=== PATIENT | female | born 1970 | race Caucasian/White ===

== ENCOUNTER 2022-03-31 18:41 | Emergency (ER) | payer OTHER ==
[2022-03-31 19:09] VITALS: BP 99/71; PULSE 82; RESP 20; TEMP 99.3; BMI 27.4
[2022-03-31] MEDS ORDERED: IBUPROFEN 600 MG TABLET (FP) PO ONE ×2 (20:45→20:49)
[2022-03-31] MEDS ORDERED: METHOCARBAMOL 500 MG TABLET PO ONE (20:56)
[2022-03-31] MEDS ORDERED: LIDOCAINE 5% TOPICAL PATCH TP ONE (20:56)
[2022-03-31] MEDS ORDERED: METHOCARBAMOL 500 MG TABLET ONE (21:06)
[2022-03-31] MEDS ORDERED: LIDOCAINE 5% TOPICAL PATCH ONE (21:07)
[2022-03-31] MEDS ORDERED: LIDOCAINE PATCH REMOVAL MC SCH (22:00)
== END 2022-03-31 21:17 | disposition home or self-care (01) ==
LOC: FER 18:41
DX: R07.89 Other chest pain (principal)
CPT/HCPCS: 71045-TC-FY; 93005; 99284-25

== ENCOUNTER 2022-05-03 10:15 | Day surgery (SDC) | payer OTHER ==
[2022-04-28 13:53] VITALS: BMI 26.5
[2022-05-03 11:45] VITALS: RESP 18; TEMP 97.7
[2022-05-03 12:05] VITALS: BP 112/70; PULSE 72
== END 2022-05-03 12:20 | disposition home or self-care (01) ==
LOC: FASU-ENDO 10:15
PROVIDERS: ATTEND Internal Medicine Gastroenterology
PROC: 0DJD8ZZ Inspection of Lower Intestinal Tract, Via Natural or Artificial Opening Endoscopic (ICD-10-PCS; principal; 2022-05-03 11:18)
DX: Z12.11 Encounter for screening for malignant neoplasm of colon (principal); K57.30 Diverticulosis of large intestine without perforation or abscess without bleeding

== ENCOUNTER 2023-06-08 09:50 | Day surgery (SDC) | payer BC ==
[2023-06-08 10:47] VITALS: BMI 29.9
[2023-06-08 10:51] LABS: BASO % 0.3 % (0-2.0); EOS % 2.2 % (0-4.5); HEMATOCRIT 39.3 % (32.4-45.2); HEMOGLOBIN 13.6 GM/dL (10.7-15.3); LYMPH % 27.5 % (8-40); MCH 28.9 pg (25.7-33.7); MCHC 34.6 g/dl (32.0-36.0); MEAN CELL VOLUME 83.5 fl (80-96); MEAN PLT VOLUME 6.9 fl (7.5-11.1); MONO % 6.9 % (3.8-10.2); NEUT % 63.1 % (42.8-82.8); PLATELET COUNT 270 10^3/uL (134-434); RBC 4.71 M/mm3 (3.60-5.2); RDW 13.3 % (11.6-15.6); WHITE BLOOD COUNT 7.3 K/mm3 (4.0-10.0)
[2023-06-08 11:00] LABS: INR 1.03 (0.83-1.09)
[2023-06-08 11:01] LABS: POTASSIUM 4.2 mmol/L (3.5-5.1)
[2023-06-08 11:02] LABS: ACTIVATED PTT 29.7 SECONDS (25.2-36.5)
[2023-06-08 11:04] LABS: BLOOD UREA NITROGEN 18.3 mg/dL (7-18)
[2023-06-08 11:05] LABS: ALBUMIN 3.8 g/dl (3.4-5.0)
[2023-06-08 11:06] LABS: CREATININE 0.8 mg/dL (0.55-1.3)
[2023-06-08 11:09] LABS: BILIRUBIN,TOTAL 0.7 mg/dL (0.2-1); TOT PROT 7.5 g/dl (6.4-8.2)
[2023-06-08] MEDS ORDERED: PROPOFOL 40 ML ONE (13:03)
[2023-06-08] MEDS ORDERED: MIDAZOLAM HCL 2 MG/2 ML SINGLE DOSE VIAL ONE (13:03)
[2023-06-08] MEDS ORDERED: SUCCINYLCHOLINE CHLORIDE 200 MG/10 ML SYRINGE ONE (13:03)
[2023-06-08] MEDS ORDERED: DEXAMETHASONE SOD PHOSPHATE 4 MG/1 ML VIAL ONE (13:21)
[2023-06-08] MEDS ORDERED: ONDANSETRON 4 MG/2 ML VIAL ONE (13:22)
[2023-06-08] MEDS ORDERED: KETOROLAC TROMETHAMINE 30 MG/1 ML VIAL ONE (13:22)
[2023-06-08] MEDS: BACITRACIN ZINC 15 GM TUBE TOPICAL OINTMENT TP ONE (14:34)
[2023-06-08] MEDS: FERRIC SUBSULFATE 500 ML BOTTLE TP ONE (14:34)
[2023-06-08] MEDS ORDERED: ONDANSETRON 4 MG/2 ML VIAL IVPUSH PRN (14:54)
[2023-06-08] MEDS ORDERED: ACETAMINOPHEN 325 MG TABLET (FP) PO PRN (14:54)
[2023-06-08] MEDS ORDERED: oxyCODONE HCL 5 MG TABLET PO PRN (14:54)
[2023-06-08] MEDS ORDERED: LACTATED RINGERS SOLUTION 1,000 ML IV SCH (15:00)
[2023-06-08 16:55] VITALS: BP 105/64; PULSE 84; RESP 18; TEMP 97.8
== END 2023-06-08 17:55 | disposition home or self-care (01) ==
LOC: JASU-SURG 09:50
PROVIDERS: ATTEND Obstetrics & Gynecology
PROC: 0UBC7ZX Excision of Cervix, Via Natural or Artificial Opening, Diagnostic (ICD-10-PCS; principal; 2023-06-08 12:00)
PROC: 0UB98ZZ Excision of Uterus, Via Natural or Artificial Opening Endoscopic (ICD-10-PCS; 2023-06-08 12:00)
PROC: 0UBM0ZX Excision of Vulva, Open Approach, Diagnostic (ICD-10-PCS; 2023-06-08 12:00)
DX: N84.0 Polyp of corpus uteri (principal); L29.2 Pruritus vulvae
CPT/HCPCS: 36415; 80053; 84702; 85025; 85610; 85730; 86850; 86900; 86901; 88305-TC; 88312-TC; 88341-TC; 88342-TC; 94760